=== PATIENT | female | born 1975 | race American Indian/Alaskan Native ===

== ENCOUNTER 2021-03-12 12:06 | Emergency (ER) | payer SELFPAY ==
--- NOTE | 2021-03-12 14:46 | Emergency Department Report ---
Chief Complaint: Medical Clearance Stated Complaint: BREAST PAIN/JAW PAIN Time Seen by Provider: 03/12/21 14:43 - HPI History of Present Illness: Patient is a 45-year-old female presents emergency room with complaints of left breast swelling and pain that began 3 weeks ago. She states her mother has a history of breast cancer. She states that she has not had a mammogram in several years. Patient states that she did have one episode of bloody discharge from the nipple. She denies any fever, nausea, vomiting, diarrhea, chills, cough, shortness of breath. no allergies to meds - Exam Vital Signs: Vital Signs 03/12/21 12:46 Temperature 98.0 F Pulse Rate 93 H Respiratory 20 Rate Blood Pressure 116/85 O2 Sat by Pulse 92 Oximetry MSE screening note: Focused history and physical exam performed. Due to findings the following was ordered: ED Disposition for MSE Clinical Impression: Breast nodule, LAD (lymphadenopathy), axillary Disposition: DC-01 TO HOME OR SELFCARE Is pt being admited?: No Does the pt Need Aspirin: No Condition: Stable Additional Instructions: Please follow-up with Dr. Louis, breast surgeon. Please follow-up with your primary care doctor. Return to emergency room for any new or worsening symptoms. It is very important that you follow-up. Referrals: [facility] [Provider Group] - 2-3 Days EM LOUIS MD [Staff Physician] - 2-3 Days Time of Disposition: 14:45 Print Language: SAMMARINESE
[2021-03-12 14:47] VITALS: BP 137/87
--- NOTE | 2021-03-12 14:56 | Emergency Department Report ---
ED General Adult HPI - General Chief complaint: Medical Clearance Stated complaint: BREAST PAIN/JAW PAIN Time Seen by Provider: 03/12/21 14:43 Source: patient Mode of arrival: Ambulatory Limitations: No Limitations - History of Present Illness Initial comments: Patient is a 45-year-old female presents emergency room with complaints of left breast swelling and pain that began 3 weeks ago. She states her mother has a history of breast cancer. She states that she has not had a mammogram in several years. Patient states that she did have one episode of bloody discharge from the nipple. She denies any fever, nausea, vomiting, diarrhea, chills, cough, shortness of breath. no allergies to meds - Related Data Previous Rx's Medication Instructions Recorded Last Taken Type Ibuprofen [Motrin 600 MG tab] 600 mg PO Q8H PRN #20 tablet 03/12/21 Unknown Rx traMADoL [Ultram 50 MG tab] 50 mg PO Q6HR PRN #12 tablet 03/12/21 Unknown Rx Allergies Allergy/AdvReac Type Severity Reaction Status Date / Time No Known Allergies Allergy Unverified 03/12/21 12:43 ED Review of Systems ROS: Stated complaint: BREAST PAIN/JAW PAIN Other details as noted in HPI Comment: All other systems reviewed and negative ED Past Medical Hx - Past Medical History Hx Asthma: Yes - Surgical History Additional Surgical History: OVARY REMOVED - Social History Smoking Status: Current Every Day Smoker Substance Use Type: None - Medications Home Medications: Home Medications Medication Instructions Recorded Confirmed Last Taken Type Ibuprofen [Motrin 600 MG tab] 600 mg PO Q8H PRN #20 tablet 03/12/21 Unknown Rx traMADoL [Ultram 50 MG tab] 50 mg PO Q6HR PRN #12 tablet 03/12/21 Unknown Rx ED Physical Exam - General Limitations: No Limitations General appearance: alert, in no apparent distress - Head Head exam: Present: atraumatic, normocephalic - Eye Eye exam: Present: normal appearance - ENT ENT exam: Present: mucous membranes moist - Respiratory Respiratory exam: Absent: respiratory distress, accessory muscle use - Neurological Exam Neurological exam: Present: alert, oriented X3 - Psychiatric Psychiatric exam: Present: normal affect, normal mood - Skin Skin exam: Present: warm, dry, other (supervisor alum plant: flory, RN, pt has an enlarged left breast, there is a firm 3 cm nodule, no erythema, no increased warmth, no nipple drainage, no peau d'orange, there is a small left axillary LAD ) ED Course Vital Signs 03/12/21 03/12/21 12:46 14:41 Temperature 98.0 F 98.5 F Pulse Rate 93 H 86 Respiratory 20 20 Rate Blood Pressure 116/85 137/87 O2 Sat by Pulse 92 94 Oximetry ED Medical Decision Making - Lab Data Vital Signs 03/12/21 03/12/21 12:46 14:41 Temperature 98.0 F 98.5 F Pulse Rate 93 H 86 Respiratory 20 20 Rate Blood Pressure 116/85 137/87 O2 Sat by Pulse 92 94 Oximetry - Medical Decision Making Patient is a 45-year-old female presents emergency room with complaints of left breast swelling and pain that began 3 weeks ago. She states her mother has a history of breast cancer. She states that she has not had a mammogram in several years. Patient states that she did have one episode of bloody discharge from the nipple. She denies any fever, nausea, vomiting, diarrhea, chills, cough, shortness of breath. no allergies to meds. Initial triage vitals with hypoxia which improved upon repeat in exam room. Patient is not having chest pain or shortness of breath. On exam: supervisor alum plant: AGNES ruth, pt has an enlarged left breast, there is a firm 3 cm nodule, no erythema, no increased warmth, no nipple drainage, no peau d'orange, there is a small left axillary LAD. Given patient's family history of breast cancer, examination is concerning for breast cancer. No signs of mastitis, cellulitis, breast abscess at this time. Patient given the appropriate resources. Discussed in detail with patient the importance of outpatient follow-up for a mammogram. Advised patient Please follow-up with Dr. Corral, breast surgeon. Please follow-up with your primary care doctor. Return to emergency room for any new or worsening symptoms. It is very important that you follow-up. Critical care attestation.: If time is entered above; I have spent that time in minutes in the direct care of this critically ill patient, excluding procedure time. ED Disposition Clinical Impression: Breast nodule, LAD (lymphadenopathy), axillary Disposition: DC-01 TO HOME OR SELFCARE Is pt being admited?: No Does the pt Need Aspirin: No Condition: Stable Additional Instructions: Please follow-up with Dr. Corral, breast surgeon. Please follow-up with your primary care doctor. Return to emergency room for any new or worsening symptoms. It is very important that you follow-up. Prescriptions: Ibuprofen [Motrin 600 MG tab] 600 mg PO Q8H PRN #20 tablet PRN Reason: Pain traMADoL [Ultram 50 MG tab] 50 mg PO Q6HR PRN #12 tablet PRN Reason: Pain , Severe (7-10) Referrals: [facility] [Provider Group] - 2-3 Days EM CORRAL MD [Staff Physician] - 2-3 Days Print Language: OCCITAN
--- NOTE | 2021-03-14 17:34 | Electrocardiograph Report ---
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
== END 2021-03-12 15:02 | disposition home or self-care (01) ==
LOC: ED 12:06
DX: N63.0 Unspecified lump in unspecified breast (principal); R59.0 Localized enlarged lymph nodes; F17.200 Nicotine dependence, unspecified, uncomplicated; J45.909 Unspecified asthma, uncomplicated; Z98.890 Other specified postprocedural states; Z79.899 Other long term (current) drug therapy
CPT/HCPCS: 93005; 99282